=== PATIENT | male | born 1960 | race Caucasian/White ===

== ENCOUNTER 2016-12-29 19:20 | Emergency (ER) | payer BC ==
[~2016-12-29] VITALS: Ht 180.3 cm; Wt 90.3 kg
--- NOTE | 2016-12-29 19:27 | NUR ---
PT AMBULATORY TO ER BED 09. C/O LOWER BACK PAIN S/P MISSED A STOOL WHILE TRYING TO SIT AND FELL. C/O MODERATE PAIN. STATES HAD BACK SX COUPLE OF MONTHS AGO. CONCERN ABOUT FRACTURE. VSS. NAD NOTED. AWAITING MD AGUILERA.
--- NOTE | 2016-12-29 19:33 | NUR ---
DR JHAVERI AT BEDSIDE FOR EVAL.
[2016-12-29] MEDS ORDERED: HYDROCODONE/APAP 5/325MG 1 EACH TABLET ONE (19:39)
[2016-12-29] MEDS ORDERED: IBUPROFEN 600 MG TABLET PO ONE ×2 (19:39→20:00)
--- NOTE | 2016-12-29 19:44 | NUR ---
PT TO RADIOLOGY FOR LUMBAR SPINE XRAY VIA WHEELCHAIR.
[2016-12-29] MEDS ORDERED: HYDROCODONE/APAP 5/325MG 1 EACH TABLET PO ONE (20:00)
[2016-12-29 20:23] VITALS: BP 136/87
== END 2016-12-29 20:24 | disposition home or self-care (01) ==
LOC: ER 19:23
DX: M54.5 Low back pain (principal); Z91.041 Radiographic dye allergy status; W08.XXXA Fall from other furniture, initial encounter; Y93.89 Activity, other specified; Y92.89 Other specified places as the place of occurrence of the external cause; Y99.8 Other external cause status
CPT/HCPCS: 72100-TC; A4606; Z7610

== ENCOUNTER 2017-01-17 18:33 | Emergency (ER) | payer BC ==
[~2017-01-17] VITALS: Ht 180.3 cm; Wt 92.5 kg
[2017-01-17 20:01] VITALS: BP 103/79
== END 2017-01-17 20:02 | disposition home or self-care (01) ==
LOC: ER 18:38
DX: M54.5 Low back pain (principal); Z91.041 Radiographic dye allergy status
CPT/HCPCS: A4606; Z7610

== ENCOUNTER 2017-11-21 19:27 | Emergency (ER) | payer BC ==
[~2017-11-21] VITALS: Ht 177.8 cm; Wt 95.3 kg
--- NOTE | 2017-11-21 19:27 | NUR ---
"LT SIDE PAIN, TRIPPED AND FELL WHILE WALKING MY DOG AT 1700". NO SOB AT THIS TIME WITH PAIN IN LT ABDOMEN/BACK 04/04 NONRADIATING. VSS NAD. WILL CONTINUE TO MONITOR FOR ANY CHANGES
[2017-11-21] MEDS ORDERED: HYDROCODONE/APAP 5/325MG 1 EACH TABLET PO ONE (20:00)
[2017-11-21] MEDS ORDERED: HYDROCODONE/APAP 5/325MG 1 EACH TABLET ONE (20:11)
--- NOTE | 2017-11-21 20:15 | NUR ---
COMMUNITY AFFAIRS DIRECTOR AT [facility]
--- NOTE | 2017-11-21 20:34 | NUR ---
BACK FROM RADIOLOGY
[2017-11-21 22:30] VITALS: BP 141/81
== END 2017-11-21 22:31 | disposition home or self-care (01) ==
LOC: ER 19:29
DX: M54.5 Low back pain (principal); Z88.8 Allergy status to other drugs, medicaments and biological substances; W01.0XXA Fall on same level from slipping, tripping and stumbling without subsequent striking against object, initial encounter; Y93.K1 Activity, walking an animal; Y92.89 Other specified places as the place of occurrence of the external cause; Y99.8 Other external cause status
CPT/HCPCS: 72100-TC; A4606; Z7610

== ENCOUNTER 2023-08-02 18:37 | Emergency (ER) | payer BC ==
[~2023-08-02] VITALS: Ht 177.8 cm; Wt 91.2 kg
[2023-08-02 20:52] VITALS: BP 158/88; TEMP 98.5; O2SAT 100
== END 2023-08-02 20:53 | disposition home or self-care (01) ==
LOC: ER 18:37
DX: S09.8XXA Other specified injuries of head, initial encounter (principal); Z98.890 Other specified postprocedural states; Z91.040 Latex allergy status; W01.0XXA Fall on same level from slipping, tripping and stumbling without subsequent striking against object, initial encounter; Y93.89 Activity, other specified; Y92.89 Other specified places as the place of occurrence of the external cause; Y99.8 Other external cause status